=== PATIENT | female | born 1985 | race American Indian/Alaskan Native ===

== ENCOUNTER 2020-07-15 20:25 | Emergency (ER) | payer OTHER ==
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
--- NOTE | 2020-07-15 23:44 | XRay Report ---
LUMBAR SPINE 2 VIEWS INDICATION: back pain COMPARISON: None. FINDINGS: There is no fracture, subluxation, or other acute radiographic abnormality of the lumbar spine. Poste rior fusion from T12 to L2 is noted. Hardware appears intact. Signer Name: Andrew Manley MD Signed: 07/15/2020 11:40 PM Workstation Name: [id number]
[2020-07-16] MEDS ORDERED: IBUPROFEN 800 MG TAB PO ONE (00:19)
[2020-07-16] MEDS ORDERED: ACETAMINOPHEN 325 MG TAB PO ONE (00:19)
[2020-07-16 02:50] VITALS: BP 149/89
== END 2020-07-16 01:15 | disposition home or self-care (01) ==
LOC: EDBD → ED 20:25
DX: S33.5XXA Sprain of ligaments of lumbar spine, initial encounter (principal); Z90.49 Acquired absence of other specified parts of digestive tract; Z98.51 Tubal ligation status; Z79.899 Other long term (current) drug therapy; V49.49XA Driver injured in collision with other motor vehicles in traffic accident, initial encounter; Y93.89 Activity, other specified; Y92.410 Unspecified street and highway as the place of occurrence of the external cause; Y99.8 Other external cause status
CPT/HCPCS: 72100

== ENCOUNTER → 2021-05-01 | Emergency (ER) | payer OTHER ==
[2021-05-01 18:12] VITALS: BP 140/81
== END ==
LOC: ED 17:21
DX: Z53.21 Procedure and treatment not carried out due to patient leaving prior to being seen by health care provider (principal)

== ENCOUNTER 2021-10-24 15:44 | Emergency (ER) | payer OTHER ==
[2021-10-24 15:59] VITALS: BP 112/61
== END 2021-10-25 04:44 | disposition left against medical advice (07) ==
LOC: ED 15:44
DX: R10.9 Unspecified abdominal pain (principal); Z53.21 Procedure and treatment not carried out due to patient leaving prior to being seen by health care provider